=== PATIENT | male | born 1995 | race Caucasian/White ===

== ENCOUNTER 2017-12-25 05:46 | Outpatient (CLI) | payer OTHER | END 2017-12-25 05:47 | disposition EMS.NT | LOC: EMS 05:46 | PROVIDERS: ATTEND Surgery | DX: S61.211A Laceration without foreign body of left index finger without damage to nail, initial encounter (principal); Y35.893A Legal intervention involving other specified means, suspect injured, initial encounter ==

== ENCOUNTER 2017-12-25 08:03 | Emergency (ER) | payer OTHER, MEDICAID ==
--- NOTE | 2017-12-25 08:11 | ED Physician Documentation ---
History of Present Illness - Stated complaint Stated Complaint: [facility] - Additonal information Additional information: hx from pt and police 22 male brought in by police in custody for DUI and resisting a air defense artillery officer per air defense artillery officer pt was pulled over and was combative, was tased and fell onto soft ground landing on his right shoulder and not striking his head, he also wrestled with the officer per police pt had a split lower lip prior to this envounter pt was seen by EMS already and is also brought to ED for medical clearance for long-term pt denies [employer] AP dyspnea his L shoulder and wrist are sore from being held behind him in the cuffs, he has abrasion to his face, he has a cut on his L index fingers he states his immuniz are UTD Review of Systems Ears: denies: Drainage/discharge Nose: denies: Epistaxis Cardiac: denies: Chest pain / pressure, Palpitations Respiratory: denies: Dyspnea GI: denies: Abdominal Pain Skin: reports: Abrasion (s), Laceration (s) Musculoskeletal: reports: Joint pain (shoulder wrist). denies: Neck pain Neurologic: denies: Headache, Head injury Endocrine: denies: Easy bruising / bleeding PD PAST MEDICAL HISTORY - Allergies Allergies/Adverse Reactions: Allergies Allergy/AdvReac Type Severity Reaction Status Date / Time No Known Drug Allergies Allergy Verified 03/19/13 07:33 PD ED PE NORMAL - Vitals Vital signs reviewed: Yes - HEENT HEENT: PERRL, EOMI, Ears normal (no mercer sign, no drainage), Other ( superficial abrasions to face, small lac to mid lower lip that is aged and does not cross the [place] border, no broken teeth, no tongue injury) - Neck Neck: No bony TTP - Cardiac Cardiac: RRR - Respiratory Respiratory: No respiratory distress - Abdomen Abdomen: Soft, Non tender - Derm Derm: Other (abrasions to face, < 1 cm sup longitudinal lac to distal phalange L index s tendon injury or FB MSV intact, taser sites L arm and upper thigh inspected - no remianing FB and no sig open wounds) - Extremities Extremities: Other (L shoulder and wrist and s deformity, mildly TTP, no crepitus, able to range s sig pain as much as is possible in cuffs, pt reports pain to be mild, do not appear to be broken or dislcoated) - Neuro Neuro: Alert and oriented X 3, 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 His wound and abrasions will need to be kept clean ands ab ointment applied daily until healed given ice for his shoulder Departure - Departure Disposition: 01 Home, Self Care Clinical Impression: Shoulder sprain Qualifiers: Encounter type: initial encounter Shoulder sprain type: unspecified sprain Laterality: left Qualified Code(s): S43.402A - Unspecified sprain of left shoulder joint, initial encounter Facial abrasion Qualifiers: Encounter type: initial encounter Qualified Code(s): S00.81XA - Abrasion of other part of head, initial encounter Finger laceration Qualifiers: Encounter type: initial encounter Finger: index finger Damage to nail status: without damage Foreign body presence: without foreign body Laterality: left Qualified Code(s): S61.211A - Laceration without foreign body of left index finger without damage to nail, initial encounter Condition: Good Comments: The shoulder and wrist do not appear to be broken. Recommend ice for 20 minutes at a time as needed for pain The finger and lip lacerations do not need sutures For the lacerations and abrasions recommend keeping them clean and applying antibiotic ointment twice a day until helaed At this time you appear to be fit to be released to police. If things change or you get worse or develop new concerns please return
[2017-12-25 08:15] VITALS: BP 145/85
[2017-12-25] MEDS ORDERED: BACITRACIN OINT TOP STA (08:17)
[2017-12-25] MEDS ORDERED: BACITRACIN OINT TOP ONE (08:21)
== END 2017-12-25 08:36 | disposition home or self-care (01) ==
LOC: ED 08:03
DX: S43.402A Unspecified sprain of left shoulder joint, initial encounter (principal); S00.81XA Abrasion of other part of head, initial encounter; S61.211A Laceration without foreign body of left index finger without damage to nail, initial encounter; Y35.813A Legal intervention involving manhandling, suspect injured, initial encounter
CPT/HCPCS: 99282; 99283; A9270